=== PATIENT | female | born 1965 | race Caucasian/White ===

== ENCOUNTER 2021-09-20 07:08 | Emergency (ER) | payer MEDICAID ==
[~2021-09-20] VITALS: Ht 162.6 cm; Wt 54.6 kg
[2021-09-20 07:12] VITALS: BP 136/74
--- NOTE | 2021-09-20 07:30 | NUR ---
Patient ambulated with steady gait to bed 8
[2021-09-20] MEDS ORDERED: NACL 0.9% 1,000 ML IV ONE (07:35)
[2021-09-20] MEDS ORDERED: KETOROLAC 15 MG/ML VIAL IVP ONE (07:35)
--- NOTE | 2021-09-20 07:45 | NUR ---
55YO FEMALE PT C/O LOWER RIGHT GLUTE PAIN X3 DAYS. PT GLUTE PRESENTS WITH ABSCESS. PT STATES IT STARTED 3 DAYS AND HAS HAD CONISTENT STINGING PAIN , MOST PAIN WHEN SITTING OR TOUCH . PT STATES TAKING WARM BATHS TO RELIEVE PAIN . PT STATES OCCASIONAL SERRANO DISCHARGE. PT ABSCESS PRESENTS REDDEND , WHITE TIP AND TENDER TO TOUCH . NO DISCHARGE AT THIS TIME. PT DENIES N/V/D OR FEVER. PT AAOX4, ALL VITALS WITHIN NORMAL RANGE.ALL PT NEEDS MET AT THIS TIME.
[2021-09-20 08:19] LABS: ANION GAP 12.6 (8-16); CARBON DIOXIDE 27.9 mmol/L (21-32); CREATININE 0.8 mg/dL (0.6-1.3); POTASSIUM 3.5 mmol/L (3.5-5.1)
--- NOTE | 2021-09-20 08:30 | NUR ---
Patient taken for CT scan via whelechair at this time.
--- NOTE | 2021-09-20 08:35 | NUR ---
Patient back from CT via wheelchair to bed 8.
[2021-09-20 08:39] LABS: BASOPHILS % (AUTO) 0.4 % (0.0-2.0); EOSINOPHILS # (AUTO) 0.3 K/uL (0-0.4); EOSINOPHILS % (AUTO) 3.2 % (0.0-4.0); HEMOGLOBIN 14.7 g/dL (12.0-16.0); LYMPHOCYTES # (AUTO) 2.1 K/uL (2.5-16.5); LYMPHOCYTES % (AUTO) 21.6 % (20.5-51.1); MEAN CORPUSCULAR HEMOGLOBIN 30 pg (27-31); MEAN CORPUSCULAR HGB CONC 33 g/dL (33-37); MEAN CORPUSCULAR VOLUME 88.6 fL (80-94); MONOCYTES # (AUTO) 0.7 K/uL (0.8-1.0); MONOCYTES % (AUTO) 7.8 % (1.7-9.3); NEUTROPHILS # (AUTO) 6.4 K/uL (1.8-7.7); PLATELET COUNT (AUTO) 332 K/uL (140-450); RED BLOOD CELL COUNT(AUTO) 4.96 MIL/uL (4.20-5.40); RED CELL DISTRIBUTION WIDTH 13.7 % (11.6-13.7); WHITE BLOOD COUNT (AUTO) 9.6 K/uL (4.8-10.8)
[2021-09-20] MEDS ORDERED: KETOROLAC 15 MG/ML VIAL ONE (09:01)
[2021-09-20] MEDS ORDERED: SULF-59 PO (09:14)
[2021-09-20] MEDS ORDERED: ACET-5629 PO (09:14)
[2021-09-20] MEDS ORDERED: CEPH-588 PO (09:14)
[2021-09-20] MEDS ORDERED: HYDROcodone/APAP 5/325 MG 1 TAB TAB PO ONE (09:25)
[2021-09-20 09:36] VITALS: BP 131/74
--- NOTE | 2021-09-20 09:44 | NUR ---
PT AT REST , WARM BLANKET PROVIDED. ALL NEEDS MET AT THIS TIME
--- NOTE | 2021-09-20 10:18 | NUR ---
IV removed, catheter intact and site benign. Applied folded 4x4 gauze and tape to stop bleeding.
--- NOTE | 2021-09-20 10:19 | NUR ---
Patient discharged with v/s stable. Written and verbal after care instructions FOR CELLULITIS given and explained. Patient alert, oriented and verbalized understanding of instructions. Ambulatory with steady gait. All questions addressed prior to discharge. ID band removed. Patient advised to follow up with PMD. Rx of OXYCODONE HCL, CEPHALEXIN, AND SULFAMETHAXAZOLE given. Opportunity to ask questions provided and answered.
--- NOTE | 2021-09-20 10:20 | NUR ---
Chart checked and completed. The patient's care was reviewed and supervised by Etta Perez RN.
== END 2021-09-20 10:19 | disposition home or self-care (01) ==
LOC: MED 07:08
DX: L03.317 Cellulitis of buttock (principal); F17.210 Nicotine dependence, cigarettes, uncomplicated; Z72.89 Other problems related to lifestyle; Z98.890 Other specified postprocedural states
CPT/HCPCS: 36415; 72193; 80048; 83605; 85025; 87040; 96361; 96374; 99285; J1885; J7030; Q9967

== ENCOUNTER 2021-12-08 21:05 | Emergency (ER) | payer MEDICAID ==
[~2021-12-08] VITALS: Ht 165.1 cm; Wt 54.4 kg
[~2021-12-08 21:05] MED LIST: ACET-5629 PO; CEPH-588 PO; SULF-59 PO
[2021-12-08 21:26] VITALS: BP 141/73
--- NOTE | 2021-12-08 23:17 | NUR ---
56 Y/O FEMALE BIBS FROM HOME, C/O ABSCESS TO LEFT HIP X3 DAYS. PT STATES BROWN DISCHARGE COMING FROM SITE, REPORTS TAKING TYLENOL WITH NO RELIEF. A/OX4, GCS-15; AMBULATORY W/O ASSISTANCE; UNLABORED BREATHING, SPEAKING IN FULL SENTENCES. SKIN PINK/WARM/DRY. DENIES N/V/D, COUGH, VOMIT, SOB, OR CP. PMH: DENIES NKA
[2021-12-09] MEDS ORDERED: ACET-10509 PO (00:41)
[2021-12-09] MEDS ORDERED: SULF-59 PO (00:41)
[2021-12-09 01:26] VITALS: BP 132/68
--- NOTE | 2021-12-09 01:26 | NUR ---
Patient discharged with v/s stable. Written and verbal after care instructions given and explained. Patient alert, oriented and verbalized understanding of instructions. Ambulatory with steady gait. All questions addressed prior to discharge. ID band removed. Patient advised to follow up with PMD. Rx of TYLENOL AND BACTRIM given. Patient educated on indication of medication including possible reaction and side effects. Opportunity to ask questions provided and answered. VSS, A/OX4, AMBULATORY, UNLABORED BREATHING, AND CALM DEMEANOR.
== END 2021-12-09 01:26 | disposition home or self-care (01) ==
LOC: MED 21:05
DX: L02.416 Cutaneous abscess of left lower limb (principal); Z90.49 Acquired absence of other specified parts of digestive tract; Z79.899 Other long term (current) drug therapy
CPT/HCPCS: 99284

== ENCOUNTER 2022-04-24 02:55 | Emergency (ER) | payer MEDICAID ==
[~2022-04-24] VITALS: Ht 165.1 cm; Wt 59.0 kg
[~2022-04-24 02:55] MED LIST changes: +ACET-10509 PO
[2022-04-24 02:58] VITALS: BP 116/72
--- NOTE | 2022-04-24 03:10 | NUR ---
Patient taken to bed 4.
--- NOTE | 2022-04-24 03:15 | NUR ---
PT IS AWAKE AND ALERT. COMPLANING ABOUT THE PAIN IN UPPER BACK /10. SHE DESCRIBE ACHING PAIN WITHOUT MOVEMENT. ROOM AIR AND AMBULATORY.
[2022-04-24 03:18] LABS: APPEARANCE,URINE CLEAR (CLEAR); BILIRUBIN,URINE NEGATIVE (NEGATIVE); BLOOD, URINE TRACE-I (NEGATIVE); COLOR,URINE YELLOW (YELLOW); LEUKOCYTE ESTERASE ,URINE 1+ (NEGATIVE); NITRITE, URINE NEGATIVE (NEGATIVE); UGLUCOSE NEGATIVE (NEGATIVE)
--- NOTE | 2022-04-24 03:25 | NUR ---
Patient being evaluated by physician at bedside.
[2022-04-24 03:34] LABS: RBC,URINE 0-5 /HPF (0-5)
[2022-04-24] MEDS ORDERED: KETOROLAC 30 MG/ML VIAL IM ONE (03:35)
[2022-04-24] MEDS ORDERED: CEPH-588 PO (03:54)
[2022-04-24] MEDS ORDERED: NAPR-54 PO (03:54)
[2022-04-24 04:08] LABS: BARBITURATE, URINE NEGATIVE ng/ml (NEG <=200)
[2022-04-24 04:09] LABS: BENZODIAZEPINE, URINE NEGATIVE ng/mL (NEG <=200); CANNABINOID, URINE POSITIVE ng/mL (NEG <=50); COCAINE, URINE POSITIVE ng/mL (NEG <=300); OPIATE, URINE NEGATIVE ng/mL (NEG <=2000); PHENCYCLIDINE SCREEN,URINE NEGATIVE ng/mL (NEG <=25)
[2022-04-24 04:11] VITALS: BP 116/72
--- NOTE | 2022-04-24 04:13 | NUR ---
Patient discharged with v/s stable. Written and verbal after care instructions given and explained. Patient verbalized understanding. Ambulatory with steady gait. All questions addressed prior to discharge. Advised to follow up with PMD. PT LEFT WITH HER BELONGINGS.
== END 2022-04-24 04:20 | disposition home or self-care (01) ==
LOC: MED 02:55
DX: N39.0 Urinary tract infection, site not specified (principal)
CPT/HCPCS: 80305; 81001; 87086; 96374; 99283; J1885

== ENCOUNTER 2023-04-24 05:00 | Emergency (ER) | payer MEDICAID ==
[~2023-04-24] VITALS: Ht 165.1 cm; Wt 56.7 kg
[~2023-04-24 05:00] MED LIST changes: +NAPR-54 PO
[2023-04-24 05:07] VITALS: BP 137/90; PULSE 86; RESP 17; TEMP 98.2; O2SAT 100
[2023-04-24 06:02] VITALS: BP 137/90; TEMP 98.2
[2023-04-24] MEDS ORDERED: predniSONE 20 MG TAB PO ONE (06:30)
[2023-04-24] MEDS ORDERED: ALBUTEROL HFA MDI 90 MCG/ACTUATION 8 GM INH ONE (06:30)
[2023-04-24 07:09] VITALS: PULSE 77; RESP 16; O2SAT 98
[2023-04-24] MEDS ORDERED: ALBU0.0912 IH (07:51)
[2023-04-24] MEDS ORDERED: PRED20TA5 PO (07:51)
[2023-04-24] MEDS ORDERED: AZIT250T4 PO (07:51)
[2023-04-24 10:09] LABS: FLU A ANTIGEN negative (NEGATIVE); FLU B ANTIGEN negative (NEGATIVE)
== END 2023-04-24 08:02 | disposition home or self-care (01) ==
LOC: MED 05:00
DX: J44.1 Chronic obstructive pulmonary disease with (acute) exacerbation (principal); Z20.822 Contact with and (suspected) exposure to COVID-19; B34.9 Viral infection, unspecified; F17.200 Nicotine dependence, unspecified, uncomplicated; Z71.6 Tobacco abuse counseling; Z79.899 Other long term (current) drug therapy
CPT/HCPCS: 71045; 87426; 87804; 94664; 99284; J7512